=== PATIENT | female | born 1995 | race African-American/Black ===

== ENCOUNTER 2017-06-04 16:16 | Emergency (ER) | payer SELFPAY ==
[~2017-06-04] VITALS: Ht 170.2 cm; Wt 150.0 kg
[2017-06-04 16:16] VITALS: BP 138/82; PULSE 96; RESP 14; TEMP 98.6; O2SAT 98
--- NOTE | 2017-06-04 16:34 | PD ---
HPI Chief Complaint: Die Repair Problem/Complaint Time Seen by Provider: 16:28 Travel History International Travel<30 days: No Contact w/Intl Traveler<30days: No Traveled to known affect area: No History of Present Illness HPI This is a 21-year-old female who presents to the emergency department with amenorrhea for 4 months. She says she's taken multiple tests at home which have been negative. She says she had an IUD removed 6 months ago and after that she had some irregular bleeding but then ever since has had a menstrual cycle. She just moved here from out of town and doesn't have a dirt bike mechanic or primary care doctor. She denies any abdominal pain or other complaints. History Past Medical Histgory LMP: 4 MONTHS AGO Review of Systems General / Constitutional: No: Fever, Chills Gastrointestinal: No: Nausea, Vomiting Physical Exam Narrative GENERAL: Well-appearing, no acute distress, nontoxic SKIN: Warm and dry. HEAD: Atraumatic. Normocephalic. ENT: No nasal bleeding or discharge. Moist mucous membranes MUSCULOSKELETAL: No obvious deformities. No clubbing. No cyanosis. No edema. NEUROLOGICAL: Awake and alert. No obvious cranial nerve deficits. Motor grossly within normal limits. Normal speech. PSYCHIATRIC: Appropriate mood and affect; insight and judgment normal. Data Data Last Documented VS Vital Signs Date Time Temp Pulse Resp B/P (MAP) Pulse Ox O2 Delivery O2 Flow Rate FiO2 06/04/17 16:16 98.6 96 14 138/82 (100) 98 Room Air MDM Medical Screen Exam Complete: Yes Emergency Medical Condition: No Narrative Course This Is a 21-year-old morbidly obese female who presents to the emergency department with amenorrhea for 4 months. She says she's taken multiple home tests which have been negative. I discussed with the patient that were very limited in the emergency department in the workup that we can do for amenorrhea and she requires an outpatient primary care physician or dirt bike mechanic. I don't think this reflects a medical emergency. Patient will be discharged was given resources for [facility]. Primary Impression: Amenorrhea Karon Bolivar MD Jun 04, 2017 16:34
== END 2017-06-04 16:37 | disposition left against medical advice (07) ==
LOC: NEPD 16:16
DX: N91.2 Amenorrhea, unspecified (principal)
CPT/HCPCS: 99281